=== PATIENT | female | born 2000 | race Caucasian/White ===

== ENCOUNTER 2020-12-28 11:43 | Emergency (ER) | payer BC ==
[~2020-12-28] VITALS: Ht 162.6 cm; Wt 72.3 kg
[2020-12-28] MEDS ORDERED: METO1TAB7 PO (12:07)
[2020-12-28] MEDS ORDERED: SERT-141 PO (12:07)
[2020-12-28] MEDS ORDERED: JUNETAB PO (12:07)
[2020-12-28] MEDS ORDERED: IBUPROFEN 800 MG TAB PO ONE (14:05)
[2020-12-28 14:40] VITALS: BP 135/88
== END 2020-12-28 14:43 | disposition home or self-care (01) ==
LOC: M ED 11:43
DX: R51.9 Headache, unspecified (principal)